=== PATIENT | female | born 1965 | race Caucasian/White ===

== ENCOUNTER 2018-07-29 16:14 | Emergency (ER) | payer BC ==
[2018-07-29 17:22] VITALS: BP 136/82
[2018-07-29 17:36] LABS: Influenza A Molecular POSITIVE (Negative)
--- NOTE | 2018-07-29 17:41 | UC ---
UC General HPI - HPI Summary HPI Summary: 2 DAY HX OF SORE THROAT, BODY ACHES, COUGH WITH CONGESTION AND FEVER. NO CP OR SOB. NO HX ASTHMA. - History of Current Complaint Chief Complaint: UCRespiratory Stated Complaint: SORE THROAT Time Seen by Provider: 07/29/18 17:16 Hx Obtained From: Patient Hx Last Menstrual Period: ~2 months ago Timing: Constant Pain Intensity: 7 Associated Signs & Symptoms: Negative: Chest Pain, Diarrhea, Dysuria, Vomiting - Allergy/Home Medications Allergies/Adverse Reactions: Allergies Allergy/AdvReac Type Severity Reaction Status Date / Time No Known Allergies Allergy Verified 07/29/18 17:22 Home Medications: Home Medications Ibuprofen 800 mg PO 07/29/18 [History] PMH/Surg Hx/FS Hx/Imm Hx Psychological History: Depression - Surgical History Surgical History: Yes Surgery Procedure, Year, and Place: [place] REMOVED FROM BREAST - Family History Known Family History: Positive: Non-Contributory - Social History Alcohol Use: Occasionally Substance Use Type: None Smoking Status (MU): Never Smoked Tobacco - Immunization History Vaccination Up to Date: Yes Review of Systems All Other Systems Reviewed And Are Negative: Yes Constitutional: Positive: Fever Skin: Positive: Negative Eyes: Positive: Negative ENT: Positive: Sore Throat Respiratory: Positive: Cough Cardiovascular: Positive: Negative Gastrointestinal: Positive: Negative Genitourinary: Positive: Negative Motor: Positive: Negative Neurovascular: Positive: Negative Musculoskeletal: Positive: Myalgia Neurological: Positive: Negative Psychological: Positive: Negative Is Patient Immunocompromised?: No Physical Exam Triage Information Reviewed: Yes Appearance: Well-Appearing Vital Signs: Initial Vital Signs Temp 100.1 F 07/29/18 17:18 Pulse 75 07/29/18 17:18 Resp 18 07/29/18 17:18 BP 136/82 07/29/18 17:18 Pulse Ox 100 07/29/18 17:18 Vital Signs Reviewed: Yes Eyes: Positive: Conjunctiva Clear ENT: Positive: Pharynx normal, TMs normal. Negative: Nasal drainage Neck: Positive: Supple, Nontender, No Lymphadenopathy Respiratory: Positive: Lungs clear, Normal breath sounds, No respiratory distress Cardiovascular: Positive: RRR, No Murmur Abdomen Description: Positive: Nontender, No Organomegaly, Soft Bowel Sounds: Positive: Present Musculoskeletal: Positive: ROM Intact Neurological: Positive: Alert Psychological: Positive: Age Appropriate Behavior Skin Exam: Normal Diagnostics - Laboratory Diagnostic Studies Completed/Ordered: RAPID STREP=NEG. RAPID FLU + FOR INFLUENZA A Course/Dx - Differential Dx - Multi-Symptom Differential Diagnoses: Other - PNEUMONIA, VIRAL SYNDROM, INFLUENZA - Diagnoses Provider Diagnosis: Influenza A Discharge - Sign-Out/Discharge Documenting (check all that apply): Patient Departure All imaging exams completed and their final reports reviewed: No Studies - Discharge Plan Condition: Stable Disposition: HOME Patient Education Materials: Influenza (ED) Forms: *Work Release Referrals: Brittany Amaya MD [Primary Care Provider] - Additional Instructions: follow up with primary care if not better in 5-7 days or sooner if worse. - Billing Disposition and Condition Condition: STABLE Disposition: Home
== END 2018-07-29 17:50 | disposition home or self-care (01) ==
LOC: UCCORT 16:14
DX: J10.1 Influenza due to other identified influenza virus with other respiratory manifestations (principal)
CPT/HCPCS: 87651; 99211; G0463

== ENCOUNTER 2019-03-24 15:18 | Emergency (ER) | payer BC ==
[2019-03-24 17:17] VITALS: BP 148/81
--- NOTE | 2019-03-24 17:23 | UC ---
Skin Complaint HPI - HPI Summary HPI Summary: 54 year old female presents with complaints of reddened area to the back of her right lower leg. States she first noticed approximately 1 week ago after she knicked herself shaving. States redness has slowly spread over the past week. Tender to touch and occasionally itchy. Denies known tick bite, fever, chills, flu-like symptoms, myalgias, joint pain or swelling, lower extremity edema, chest pain, or SOB. - History of Current Complaint Chief Complaint: UCSkin Time Seen by Provider: 03/24/19 17:15 Stated Complaint: RT KNEE COMPLAINT Hx Obtained From: Patient Hx Last Menstrual Period: ~2 months ago Pain Intensity: 0 - Allergy/Home Medications Allergies/Adverse Reactions: Allergies Allergy/AdvReac Type Severity Reaction Status Date / Time No Known Allergies Allergy Verified 03/24/19 17:17 PMH/Surg Hx/FS Hx/Imm Hx Previously Healthy: Yes Psychological History: Depression - Surgical History Surgical History: Yes Surgery Procedure, Year, and Place: PAP[place] REMOVED FROM BREAST - Family History Known Family History: Positive: Non-Contributory - Social History Occupation: Employed Full-time Lives: Alone Alcohol Use: Occasionally Substance Use Type: None Smoking Status (MU): Never Smoked Tobacco - Immunization History Vaccination Up to Date: Yes Review of Systems All Other Systems Reviewed And Are Negative: Yes Constitutional: Negative: Fever, Chills Skin: Positive: Other - See HPI Respiratory: Positive: Negative Cardiovascular: Positive: Negative Gastrointestinal: Positive: Negative Genitourinary: Positive: Negative Musculoskeletal: Positive: Negative Neurological: Positive: Negative Is Patient Immunocompromised?: No Physical Exam - Summary Physical Exam Summary: GENERAL APPEARANCE: Well developed, well nourished, alert and cooperative, and appears to be in no acute distress. CARDIAC: Normal S1 and S2. No S3, S4 or murmurs. Rhythm is regular. There is no peripheral edema, cyanosis or pallor. Extremities are warm and well perfused. Capillary refill is less than 2 seconds. Peripheral pulses intact. LUNGS: Clear to auscultation without rales, rhonchi, wheezing or diminished breath sounds. ABDOMEN: Positive bowel sounds. Soft, nondistended, nontender. No guarding or rebound. No masses or hepatosplenomegally. MUSKULOSKELETAL: ROM intact to all extremities. No joint erythema or tenderness. Normal muscular development. Normal gait. EXTREMITIES: 4.5 cm x 5.5 cm area of erythema with mild edema to the posterior, proximal right calf. No induration or fluctuance noted. No calf swelling, tenderness, or varicosities noted. SKIN: Skin normal color, texture and turgor. Triage Information Reviewed: Yes Vital Signs: Initial Vital Signs Temp 98 F 03/24/19 17:13 Pulse 56 03/24/19 17:13 Resp 16 03/24/19 17:13 BP 148/81 03/24/19 17:13 Pulse Ox 100 03/24/19 17:13 Vital Signs Reviewed: Yes Course/Dx - Course Course Of Treatment: 54 year old female presents with complaints of reddened area to the back of her right lower leg. States she first noticed approximately 1 week ago after she knicked herself shaving. States redness has slowly spread over the past week. Tender to touch and occasionally itchy. Denies known tick bite, fever, chills, flu-like symptoms, myalgias, joint pain or swelling, lower extremity edema, chest pain, or SOB. Afebrile. Hypertensive otherwise VSS. Patient had a 4.5 cm x 5.5 cm area of erythema with mild edema to the posterior, proximal right calf consistent with a mild cellulitis. No induration or fluctuance noted. The area was marked with a skin pen. Discussed with patient that based on her history and exam will treat for cellulitis with 7 day course of cephalexin 500 mg TID. I did discuss with the patient that I have low suspicion for Lyme disease although cannot fully rule this out this time. She is to follow up with her PCP in 3 days if no improvement in symptoms. Anticipatory guidance and warning symptoms reviewed with patient. Verbalizes understanding and agrees with POC. - Differential Diagnoses - Skin Complaint Differential Diagnoses: Abscess, Contact Dermatitis, Local Allergic Reaction, MRSA, Tick Born Illness - Diagnoses Provider Diagnosis: Cellulitis of right lower leg Discharge ED - Sign-Out/Discharge Documenting (check all that apply): Patient Departure All imaging exams completed and their final reports reviewed: No Studies - Discharge Plan Condition: Stable Disposition: HOME Prescriptions: Cephalexin CAP* [Keflex 500 CAP*] 500 mg PO TID #21 cap Patient Education Materials: Cellulitis (ED) Referrals: Brittany Amaya MD [Primary Care Provider] - 3 Days Additional Instructions: The redness to the back of your knee appears to be an infection of the skin called cellulitis. We will start you on an antibiotic to treat the infection. Take cephalexin 500 mg three times a day for 7 days. Although I have a very low suspicion, I cannot fully exclude the possibility that this is rash from Lyme disease. You will need to monitor for signs and symptoms of Lyme disease over the next several weeks including fever, flu-like symptoms including headache, stiff neck, fatigue, muscle aches, joint pain or swelling. Seek immediate medical attention if you develop any of these symptoms as the antibiotic you are being treated with today would not treat Lyme disease. Follow-up with your primary care provider in 3 days if no improvement in symptoms. Seek immediate medical attention if you develop fever greater than 100.5 F, the redness rapidly spreads, swelling of the legs, pain that is not managed with [id number] pain medication, or any worsening of symptoms. - Billing Disposition and Condition Condition: STABLE Disposition: Home
== END 2019-03-24 17:53 | disposition home or self-care (01) ==
LOC: UCCORT 15:18
DX: L03.115 Cellulitis of right lower limb (principal)
CPT/HCPCS: 99212; G0463

== ENCOUNTER 2019-04-11 07:15 | Emergency (ER) | payer BC ==
--- OUTSIDE RECORDS SUMMARY | 2019-04-11 07:23 | XMS REPORT | Continuity of Care Document ---
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/2011 Anxiety state Brittany Amaya MD Onset: 05/19/2011 Gastroesophageal reflux disease Noel Padilla MD Onset: Social History Type Date Description Comments Sex Unknown Tobacco Use Start: Unknown Never Smoked Cigarettes ETOH Use Occasionally consumes alcohol Tobacco Use Start: Unknown Patient has never smoked Smoking Status Reviewed: 04/07/19 Patient has never smoked Allergies, Adverse Reactions, Alerts Active Allergies Reaction Severity Comments Date Bacitracin 06/23/2008 Medications Active Medications SIG Qnty Indications Ordering Provider Date Escitalopram Oxalate take one tablet 111tabs Brittany Amaya, 04/15/2007 by mouth every MD 10mg Tablets day , and 2 tablets daily during week prior to menses Acyclovir use as directed. 45gm B00.2 Brittany Amaya, 10/03/2005 5% Ointment as needed Probiotic Acidophilus 1 by mouth every Unknown Super Strength day Tablets Biotin One by mouth Unknown 10mg Capsules once daily Immunizations CPT Code Status Date Vaccine Lot # [id number] Given 04/07/2004 Immunization Td 7 Yrs Or Older [id number] Refused 03/14/2018 Flu Vaccine NOS [id number] Refused 08/31/2017 Afluria Or Fluvirin Flu Vac Intramuscular 24389 Refused 08/07/2016 Tetanus And Diptheria Toxoid 7 Years And Older Preserv Free Vital Signs Date Vital Result Comment 04/07/2019 4:10pm Weight 141.00 lb Heart Rate 69 /min BP Systolic 116 mmHg BP Diastolic 70 mmHg Respiratory Rate 18 /min Height 63.5 inches 5'3.50" O2 % BldC Oximetry 98 % Ra BMI (Body Mass Index) 24.6 kg/m2 09/26/2018 4:20pm Weight 134.00 lb Heart Rate 72 /min BP Systolic 118 mmHg BP Diastolic 72 mmHg Respiratory Rate 16 /min Height 63.5 inches 5'3.50" 5'3.5 O2 % BldC Oximetry 98 % Ra BMI (Body Mass Index) 23.4 kg/m2 Results Description No Information Available Procedures Date Code Description Status 10/02/2014 58578253 Colonoscopy Completed Medical Devices Description No Information Available Encounters Description No Information Available Assessments Date Code Description Provider 04/07/2019 Z00.00 Encounter for general adult medical examination Brittany Amaya MD without abnormal findings 04/07/2019 B00.2 Herpesviral gingivostomatitis and Brittany Amaya MD pharyngotonsillitis 04/07/2019 F41.1 Generalized anxiety disorder Brittany Amaya MD 04/07/2019 L03.115 Cellulitis of RIGHT lower limb Brittany Amaya MD Plan of Treatment Future Appointment(s):10/02/2019 7:35 am - Schedule, Laboratory at [facility]2019 4:00 pm - Brittany Amaya MD at [facility]04/07/2019 - Brittany Amaya MDZ00.00 Encounter for general adult medical examination without abnormal findingsNew Labs:Lipid, Scheduled: 10/02/19Comments:Annual well visit done. We updated list of consulting doctors. We updated medication list.Follow up:6-months routine follow up with fasting labs prior.B00.2 Herpesviral gingivostomatitis and pharyngotonsillitisComments:Her cold sores are treated with the use of Acyclovir. Continue current medication.F41.1 Generalized anxiety disorderNew Labs:Comprehensive Metabolic-RL, Scheduled: 10/02/19TSH, Scheduled: 10/02/19CBC with Auto Diff-fcmg, Scheduled: 10/02/19Comments:doing well on escitalopram - continue this,L03.115 Cellulitis of RIGHT lower limbComments:resolved with cephalexin. please call for new or returning symptoms Functional Status Description No Information Available Mental Status Description No Information Available Referrals Description No Information Available
[2019-04-11 07:32] VITALS: BP 119/72
--- NOTE | 2019-04-11 07:48 | UC ---
Skin Complaint HPI - HPI Summary HPI Summary: 54yo woman treated with cephalexin for cellulitis of the right knee area on 03/24. Resolved completely. Awoke this morning and noticed a well defined area of erythema on the infero-medial right knee area, with a central area of erythema. Not tender or itchy. No hx of tick bite, mowed her lawn x 2 days ago. No fever, chills, myalgias, or joint swelling. Recent low back ache with radiation to the left leg resolved after a few days or ibuprofen. - History of Current Complaint Chief Complaint: UCSkin Time Seen by Provider: 04/11/19 07:35 Stated Complaint: RIGHT LEG/KNEE SKIN Hx Obtained From: Patient Hx Last Menstrual Period: JUN 2018, PERIMENOPAUSAL Onset/Duration: Sudden Onset, Lasting Hours Skin Exposure Onset/Duration: Days Ago - possibly 2 days ago. Timing: Constant Onset Severity: Mild Current Severity: Mild Pain Intensity: 0 Location: Discrete Character: Redness Aggravating Factor(s): Nothing Alleviating Factor(s): Nothing Associated Signs & Symptoms: Positive: Negative - Allergy/Home Medications Allergies/Adverse Reactions: Allergies Allergy/AdvReac Type Severity Reaction Status Date / Time No Known Allergies Allergy Verified 04/11/19 07:25 Home Medications: Home Medications Biotin 1 mg PO DAILY 04/11/19 [History Confirmed 04/11/19] PMH/Surg Hx/FS Hx/Imm Hx Previously Healthy: Yes Psychological History: Depression - Surgical History Surgical History: Yes Surgery Procedure, Year, and Place: PAPILLOMA REMOVED FROM BREAST - Family History Known Family History: Positive: Non-Contributory - Social History Occupation: Employed Full-time Lives: With Family Alcohol Use: Occasionally Substance Use Type: None Smoking Status (MU): Never Smoked Tobacco - Immunization History Vaccination Up to Date: Yes Review of Systems All Other Systems Reviewed And Are Negative: Yes Constitutional: Positive: Negative Skin: Positive: Rash Respiratory: Positive: Negative Cardiovascular: Positive: Negative Gastrointestinal: Positive: Negative Motor: Positive: Negative Musculoskeletal: Positive: Negative Neurological: Positive: Negative Is Patient Immunocompromised?: No Physical Exam Triage Information Reviewed: Yes Appearance: Well-Appearing, No Pain Distress Vital Signs: Initial Vital Signs Temp 98.4 F 04/11/19 07:26 Pulse 72 04/11/19 07:26 Resp 16 04/11/19 07:26 BP 119/72 04/11/19 07:26 Pulse Ox 100 04/11/19 07:26 ENT: Positive: Normal ENT inspection Respiratory: Positive: Lungs clear, Normal breath sounds Cardiovascular: Positive: RRR, No Murmur Skin Exam: Other - 10 x 7 cm area of non-blanching erythema, well demarcated, right medial knee area, with off center mildly indurated 3 mm papule. No tenderness. Course/Dx - Course Course Of Treatment: Rash consistent with erythema migrans in appearance. Discussed treatment with doxycycline x 10 days. - Differential Diagnoses - Skin Complaint Differential Diagnoses: Cellulitis, Tick Born Illness, Other - erythema migrans - Diagnoses Provider Diagnosis: Erythema migrans (Lyme disease) Discharge ED - Sign-Out/Discharge Documenting (check all that apply): Patient Departure All imaging exams completed and their final reports reviewed: No Studies - Discharge Plan Condition: Good Disposition: HOME Prescriptions: DOXYcycline CAP(*) [DOXYcycline 100MG CAP(*)] 100 mg PO BID #20 cap Patient Education Materials: Lyme Disease (ED) Referrals: Brittany Amaya MD [Primary Care Provider] - Additional Instructions: The appearance of the red area on the right leg is most consistent with erythema migrans, the rash of early Lyme disease. Please take the full course of doxycycline and be attentive to any developing symptoms, such as fever or joint pains. The rash will likely enlarge in the next 24 hours, but then should begin to fade. Blood testing would not be helpful at this point because it takes several weeks for - Billing Disposition and Condition Condition: GOOD Disposition: Home
== END 2019-04-11 08:11 | disposition home or self-care (01) ==
LOC: UCCORT 07:15
DX: A69.20 Lyme disease, unspecified (principal)
CPT/HCPCS: 99212; G0463